=== PATIENT | male | born 1990 ===

== ENCOUNTER 2022-01-06 13:09 | Emergency (ER) | payer SELFPAY ==
[~2022-01-06] VITALS: Ht 190.5 cm; Wt 102.3 kg
[2022-01-06 13:18] VITALS: BP 142/82
== END 2022-01-06 13:30 | disposition home or self-care (01) ==
LOC: ER 13:09
DX: R03.0 Elevated blood-pressure reading, without diagnosis of hypertension (principal)
CPT/HCPCS: 99283

== ENCOUNTER 2022-01-20 10:00 | Emergency (ER) | payer MEDICAID ==
[~2022-01-20] VITALS: Ht 198.1 cm; Wt 100.0 kg
[2022-01-20 10:38] LABS: BASOPHILS # (AUTO) 0.1 X10'3 (0-0.2); BASOPHILS % (AUTO) 0.6 % (0-1); EOSINOPHILS # (AUTO) 0.1 X10'3 (0-0.9); HEMATOCRIT 44.9 % (42.0-52.0); LYMPHOCYTES # (AUTO) 2.8 X10'3 (1.1-4.8); MEAN CORPUSCULAR HEMOGLOBIN 31.9 PG (27.0-31.0); MEAN CORPUSCULAR HGB CONC 33.5 g/dL (33.0-36.5); MEAN CORPUSCULAR VOLUME 95.2 FL (78-98); MEAN PLATELET VOLUME 8.4 FL (7.4-10.4); MONOCYTES # (AUTO) 0.4 X10'3 (0-0.9); MONOCYTES % (AUTO) 4.7 % (2-12); NEUTROPHILS # (AUTO) 5.8 X10'3 (1.8-7.7); NEUTROPHILS % (AUTO) 63.7 % (42-75); PLATELET COUNT 288 X10'3 (140-440); RED BLOOD COUNT 4.71 X10'6 (4.70-6.10); RED CELL DISTRIBUTION WIDTH 13.9 % (11.5-14.5); WHITE BLOOD COUNT 9.2 X10'3 (4.5-11.0)
[2022-01-20 10:53] LABS: ALANINE AMINOTRANSFERASE 65 U/L (12-78); ALBUMIN 3.5 G/DL (3.4-5.0); ALBUMIN/GLOBULIN RATIO 0.9 (1.1-1.5); ALKALINE PHOSPHATASE 104 IU/L (46-116); ASPARTATE AMINO TRANSFERASE 33 U/L (10-37); BILIRUBIN,TOTAL 0.6 MG/DL (0.1-1.0); BLOOD UREA NITROGEN 22 MG/DL (7-18); BUN/CREATININE RATIO 16.8 (5.4-32.0); CALCIUM 9.1 MG/DL (8.5-10.1); CREATININE 1.31 MG/DL (0.60-1.10); LIPASE 156 U/L (73-393); TOTAL PROTEIN 7.3 G/DL (6.4-8.2); eGFR 63 ML/MIN
[2022-01-20 11:41] LABS: CLARITY,URINE CLEAR (Clear); GLUCOSE, URINE >=1000 mg/dl (Neg); KETONES,URINE NEGATIVE (Neg); LEUKOCYTE ESTERASE ,URINE NEGATIVE (Neg); NITRITES, URINE NEGATIVE (Neg); OCCULT BLOOD,URINE NEGATIVE (Neg); PROTEIN,URINE NEGATIVE (Neg); UROBILINOGEN,URINE 0.2 E.U/dL (0.2-1.0)
[2022-01-20] MEDS ORDERED: insulin Lispro (HumaLOG) vial - multi-dose SQ NR (12:00)
[2022-01-20] MEDS ORDERED: insulin NPH/REG insulin (NovoLIN 70/30) 10ml vial SQ SCH ×2 (12:00→20:00)
[2022-01-20 12:08] LABS: COLOR,URINE STRAW (Yellow); UA COLLECTION TYPE VOIDED
[2022-01-20] MEDS ORDERED: insulin regular, human U-100 3ml vial - multi-dose SQ SCH (12:08)
[2022-01-20] MEDS ORDERED: insulin regular, human U-100 3ml vial - multi-dose SQ NR (12:09)
[2022-01-20 12:29] LABS: BACTERIA,URINE FEW /HPF (Neg); RBC,URINE 0-2 /HPF (0-2); SQUAMOUS EPITHELIAL CELL,UR FEW /LPF (FEW); WBC,URINE 0-4 /HPF (0-4)
[2022-01-20] MEDS ORDERED: ringers solution, lacted 1,000 ML IV ONE ×2 (12:35→13:25)
[2022-01-20 12:46] LABS: CHLORIDE 90 MMOL/L (99-107); POTASSIUM 4.7 MMOL/L (3.5-5.1); SODIUM 127 MMOL/L (135-145)
[2022-01-20 12:47] LABS: GLUCOSE 786 MG/DL (70-104)
[2022-01-20 12:55] LABS: ANION GAP 13 (8-16)
[2022-01-20] MEDS ORDERED: INSU100V37 SQ (15:01)
[2022-01-20 15:17] VITALS: BP 129/82
== END 2022-01-20 15:18 | disposition home or self-care (01) ==
LOC: ER 10:01
DX: E11.65 Type 2 diabetes mellitus with hyperglycemia (principal)
CPT/HCPCS: 36415; 80053; 81001; 82948; 83690; 85025; 93005; 96360; 96361; 96372; 99285; J1815; J7120

== ENCOUNTER 2022-02-02 23:17 | Emergency (ER) | payer MEDICAID ==
[~2022-02-02] VITALS: Ht 198.1 cm; Wt 100.0 kg
[~2022-02-02 23:17] MED LIST: INSU100V37 SQ
[2022-02-03 00:10] LABS: BASOPHILS # (AUTO) 0.1 X10'3 (0-0.2); BASOPHILS % (AUTO) 0.7 % (0-1); EOSINOPHILS # (AUTO) 0.1 X10'3 (0-0.9); EOSINOPHILS % (AUTO) 1.3 % (0-6); HEMATOCRIT 43.4 % (42.0-52.0); LYMPHOCYTES # (AUTO) 4.2 X10'3 (1.1-4.8); LYMPHOCYTES % (AUTO) 43.1 % (21-51); MEAN CORPUSCULAR HEMOGLOBIN 31.9 PG (27.0-31.0); MEAN CORPUSCULAR HGB CONC 34.7 g/dL (33.0-36.5); MEAN CORPUSCULAR VOLUME 91.9 FL (78-98); MEAN PLATELET VOLUME 8.3 FL (7.4-10.4); MONOCYTES % (AUTO) 10.1 % (2-12); NEUTROPHILS # (AUTO) 4.3 X10'3 (1.8-7.7); NEUTROPHILS % (AUTO) 44.8 % (42-75); PLATELET COUNT 262 X10'3 (140-440); RED BLOOD COUNT 4.72 X10'6 (4.70-6.10); RED CELL DISTRIBUTION WIDTH 13.8 % (11.5-14.5); WHITE BLOOD COUNT 9.7 X10'3 (4.5-11.0)
[2022-02-03 00:15] LABS: ALANINE AMINOTRANSFERASE 71 U/L (12-78); ALBUMIN 3.8 G/DL (3.4-5.0); ALBUMIN/GLOBULIN RATIO 1.1 (1.1-1.5); ALKALINE PHOSPHATASE 99 IU/L (46-116); ANION GAP 12 (8-16); ASPARTATE AMINO TRANSFERASE 33 U/L (10-37); BILIRUBIN,TOTAL 0.6 MG/DL (0.1-1.0); BLOOD UREA NITROGEN 25 MG/DL (7-18); BUN/CREATININE RATIO 24.8 (5.4-32.0); CALCIUM 9.3 MG/DL (8.5-10.1); CHLORIDE 101 MMOL/L (99-107); CREATININE 1.01 MG/DL (0.60-1.10); GLUCOSE 69 MG/DL (70-104); SODIUM 141 MMOL/L (135-145); TOTAL CARBON DIOXIDE 28.2 MMOL/L (24-32); TOTAL PROTEIN 7.3 G/DL (6.4-8.2); eGFR 86 ML/MIN
[2022-02-03 00:20] LABS: POTASSIUM 2.8 MMOL/L (3.5-5.1)
[2022-02-03] MEDS ORDERED: potassium Cl 20 mEq SR tablet PO STA (00:36)
[2022-02-03 03:30] VITALS: BP 115/56
== END 2022-02-03 02:38 | disposition home or self-care (01) ==
LOC: ER 23:18
DX: E10.649 Type 1 diabetes mellitus with hypoglycemia without coma (principal)
CPT/HCPCS: 36415; 80053; 82948; 85025; 99285